=== PATIENT | male | born 1945 | race Caucasian/White ===

== ENCOUNTER → 2020-12-14 | Outpatient (CLI) | payer OTHER ==
[2020-12-15 07:11] LABS: RHEUMATOID ARTHRITIS FACTOR 12.3 IU/mL (0.0-13.9)
[2020-12-15 08:14] LABS: HBSAG SCREEN Negative (Negative); HCV AB <0.1 (0.0-0.9); HEP B CORE AB, TOT Negative (Negative)
[2020-12-16 00:09] LABS: CCP ANTIBODIES IGG/IGA 8 units (0-19)
[2020-12-17 19:09] LABS: QUANTIFERON MITOGEN VALUE >10.00 IU/mL (.); QUANTIFERON NIL VALUE 0.07 IU/mL (.); QUANTIFERON-TB GOLD PLUS Negative (Negative)
== END ==
LOC: LAB 11:45
PROVIDERS: Nurse Practitioner Family
DX: M25.532 Pain in left wrist (principal); M25.531 Pain in right wrist; Z11.59 Encounter for screening for other viral diseases; D89.9 Disorder involving the immune mechanism, unspecified; R76.8 Other specified abnormal immunological findings in serum
CPT/HCPCS: 36415; 73110; 82550; 83520; 85652; 86140; 86200; 86431; 86704; 86803; 87340

== ENCOUNTER → 2021-05-10 | Outpatient (CLI) | payer OTHER ==
[~2021-05-10] MED LIST: ATORVASTATIN CA80 MG PO; BENAZEPRIL HCL40 MG PO; BYSTOLIC5 MG PO; HYDROCHLOROTH12.5 M1 PO; HYDROCODON-ACE1 EAC4 PO; LASIX 40 MG TAB40 MG PO; LEVOTHYROXINE25 MCG PO; PLAQUENIL 200200 MG PO; POTASSIUM CHLO10 ME1 PO; PRIMIDONE50 MG PO; VITAMIN D350 MCG PO
== END ==
LOC: EXRD 14:49
DX: J90 Pleural effusion, not elsewhere classified (principal); R91.8 Other nonspecific abnormal finding of lung field
CPT/HCPCS: 71046

== ENCOUNTER 2021-05-29 15:48 | Emergency (ER) | payer OTHER ==
[2021-05-29 16:42] LABS: RED BLOOD COUNT 4.84 M/UL (4.20-5.50); WHITE BLOOD COUNT 10.3 K/UL (4.5-11.0)
[2021-05-29 17:09] LABS: BUN/CREATININE RATIO 26 (0-10)
== END 2021-05-29 19:32 | disposition home or self-care (01) ==
LOC: ER1 15:48
DX: J90 Pleural effusion, not elsewhere classified (principal)
CPT/HCPCS: 71045; 80053; 82550; 82553; 83874; 84484; 85025; 85610; 93005; 99285

== ENCOUNTER → 2021-05-29 | Outpatient (CLI) | payer OTHER | LOC: RAD 15:27 | DX: R06.02 Shortness of breath (principal); J90 Pleural effusion, not elsewhere classified | CPT/HCPCS: 71046 ==

== ENCOUNTER → 2021-06-28 | Outpatient (CLI) | payer OTHER | LOC: KOH-I 09:52 → CT 10:00 → KOH-I 10:00 | DX: J90 Pleural effusion, not elsewhere classified (principal) | CPT/HCPCS: 71250 ==

== ENCOUNTER → 2021-11-08 | Outpatient (CLI) | payer OTHER | LOC: RAD 11:56 | DX: J90 Pleural effusion, not elsewhere classified (principal); J98.11 Atelectasis | CPT/HCPCS: 71046 ==

== ENCOUNTER → 2022-02-14 | Outpatient (CLI) | payer OTHER | LOC: RAD 10:09 | DX: J90 Pleural effusion, not elsewhere classified (principal); J98.4 Other disorders of lung | CPT/HCPCS: 71046 ==